=== PATIENT | female | born 1955 | race Caucasian/White ===

== ENCOUNTER 2019-10-11 16:21 | Emergency (ER) | payer MEDICAID ==
[~2019-10-11] VITALS: Ht 170.2 cm; Wt 101.2 kg
[2019-10-11 16:30] VITALS: BP 124/67; Ht 170.2 cm; Wt 101.2 kg
== END 2019-10-11 17:19 | disposition home or self-care (01) ==
LOC: ED 16:21
DX: J03.90 Acute tonsillitis, unspecified (principal)

== ENCOUNTER 2019-10-28 07:04 | Day surgery (SDC) | payer MEDICAID ==
[~2019-10-28] VITALS: Ht 165.1 cm; Wt 102.5 kg
[2019-10-28 07:54] VITALS: BP 112/70
[2019-10-28 12:49] VITALS: BP 125/71
== END 2019-10-28 11:10 | disposition home or self-care (01) ==
LOC: DS 07:04 → GI 09:30 → OR 09:30 → DS 11:10
DX: D12.0 Benign neoplasm of cecum (principal); D12.3 Benign neoplasm of transverse colon; K63.89 Other specified diseases of intestine; K29.50 Unspecified chronic gastritis without bleeding; K21.9 Gastro-esophageal reflux disease without esophagitis; K57.30 Diverticulosis of large intestine without perforation or abscess without bleeding; K64.8 Other hemorrhoids; Z79.2 Long term (current) use of antibiotics; Z98.890 Other specified postprocedural states; Z79.899 Other long term (current) drug therapy; Z78.0 Asymptomatic menopausal state
CPT/HCPCS: 43235; 45378; 87081; J1200; J1610; J2250; J2310; J3010; J3490